=== PATIENT | male | born 1960 | race Two or more races ===

== ENCOUNTER 2021-04-03 08:35 | Day surgery (SDC) | payer OTHER ==
[~2021-04-03 08:35] MED LIST: NORVASC5 MG PO
== END 2021-04-03 16:35 | disposition home or self-care (01) ==
LOC: AMB-ENDOS 08:35 → CIR.AMB 14:00 → AMB-ENDOS 16:35
PROVIDERS: ATTEND Colon & Rectal Surgery
DX: D12.2 Benign neoplasm of ascending colon (principal); D12.5 Benign neoplasm of sigmoid colon; D12.4 Benign neoplasm of descending colon; K64.0 First degree hemorrhoids